=== PATIENT | male | born 1950 | race Caucasian/White ===

== ENCOUNTER 2016-11-24 08:08 | Day surgery (SDC) | payer OTHER, MEDICARE ==
[~2016-11-24] VITALS: Ht 182.9 cm; Wt 97.5 kg
[~2016-11-24 08:08] MED LIST: BUPROPION HCL100 M1 PO; FINASTERIDE5 MG PO; FLOMAX0.4 MG PO; FLUOXETINE HCL20 M1 PO; INDERAL40 MG PO; LANTUS 10100 UNITS/ SC; LATANOPROST2.5 ML BOTH EYES; LIDOCAINE HCL35 GM TP; LO-DOSE ASPIRIN81 M2 PO; METFORMIN HCL1000 MG PO; METHOCARBAMOL500 MG PO; MOTRIN600 MG PO; NEURONTIN100 MG PO; NOVOLOG PE100 UNITS/ SC; PERCOCET 5/31 TABLET PO; SINEMET 10-1001 EACH PO; TRAMADOL HCL E100 M1 PO; VITAMIN B12 100MCG PO; ZOCOR40 MG PO; ZOFRAN4 MG PO; ZOFRAN8 MG PO; ZYPREXA15 MG PO
[2016-11-24 08:55] LABS: POINT-OF-CARE METER ID UU13113694
== END 2016-11-24 09:38 | disposition home or self-care (01) ==
LOC: PAIN 08:08 → SDC 09:15 → PAIN 09:38
PROVIDERS: Anesthesiology Pain Medicine
DX: M47.816 Spondylosis without myelopathy or radiculopathy, lumbar region (principal); M54.5 Low back pain; G89.29 Other chronic pain; M51.26 Other intervertebral disc displacement, lumbar region; M79.1 Myalgia; E11.9 Type 2 diabetes mellitus without complications; G20 Parkinson's disease; N40.0 Benign prostatic hyperplasia without lower urinary tract symptoms; Z79.4 Long term (current) use of insulin; Z79.84 Long term (current) use of oral hypoglycemic drugs; Z79.82 Long term (current) use of aspirin; Z87.891 Personal history of nicotine dependence
CPT/HCPCS: 82948; J1030; J2250; J3010; S0020

== ENCOUNTER 2017-03-09 06:49 | Day surgery (SDC) | payer OTHER, MEDICARE ==
[~2017-03-09] VITALS: Ht 182.9 cm; Wt 97.5 kg
[~2017-03-09 06:49] MED LIST changes: -FLUOXETINE HCL20 M1 PO; +NOVOLOG100 UNIT/1 SC; +OMEGA 3 500 SO1 EACH PO; +PROZAC20 MG PO
[2017-03-09 07:26] LABS: POINT-OF-CARE METER ID UU14174212
== END 2017-03-09 08:50 | disposition home or self-care (01) ==
LOC: PAIN 06:49 → SDC 07:30 → PAIN 07:30
PROVIDERS: Anesthesiology Pain Medicine
DX: M47.816 Spondylosis without myelopathy or radiculopathy, lumbar region (principal); M54.5 Low back pain; G89.29 Other chronic pain; M51.36 Other intervertebral disc degeneration, lumbar region; M48.061 Spinal stenosis, lumbar region without neurogenic claudication; E11.9 Type 2 diabetes mellitus without complications; G20 Parkinson's disease; M79.1 Myalgia; M54.2 Cervicalgia; Z79.4 Long term (current) use of insulin; Z79.82 Long term (current) use of aspirin; Z87.891 Personal history of nicotine dependence
CPT/HCPCS: 82948; J1030; J2250; J3010; S0020

== ENCOUNTER 2017-03-28 09:23 | Day surgery (SDC) | payer OTHER, MEDICARE ==
[~2017-03-28] VITALS: Ht 182.9 cm; Wt 97.6 kg
[2017-03-28 09:39] LABS: POINT-OF-CARE METER ID UU14174212
== END 2017-03-28 10:36 | disposition home or self-care (01) ==
LOC: PAIN 09:23 → SDC 10:00 → PAIN 10:36
PROVIDERS: Anesthesiology Pain Medicine
DX: M47.814 Spondylosis without myelopathy or radiculopathy, thoracic region (principal); M51.36 Other intervertebral disc degeneration, lumbar region; M54.5 Low back pain; G89.29 Other chronic pain; M79.1 Myalgia; E11.40 Type 2 diabetes mellitus with diabetic neuropathy, unspecified; E78.5 Hyperlipidemia, unspecified; G20 Parkinson's disease; Z87.891 Personal history of nicotine dependence; Z79.82 Long term (current) use of aspirin; Z79.4 Long term (current) use of insulin
CPT/HCPCS: 82948; J1030; J2250; J3010; S0020